=== PATIENT | female | born 1935 | race Caucasian/White ===

== ENCOUNTER 2017-02-04 10:37 | Observation (INO) | payer MEDICARE ==
[~2017-02-04] VITALS: Ht 160 cm; Wt 85.1 kg
[~2017-02-04 10:37] MED LIST: AMLO2.5T PO; ASPI-621 PO; ATOR40TA PO; CEFD300C2 PO; HYDR12.53 PO; HYDR25TA6 PO; LISI-167 PO; METO100T5 PO; METO50TA82 PO; TICA90TA PO
[2017-02-04] MEDS ORDERED: HYDR12.58 PO (10:56)
[2017-02-04] MEDS ORDERED: SODIUM CHLORIDE FLUSH 10ML SYR IVF ONE (11:00)
[2017-02-04 11:27] LABS: HEMOGLOBIN 14.5 g/dL (11.7-16.4)
[2017-02-04 11:37] LABS: BLOOD UREA NITROGEN 16 mg/dL (7-18)
[2017-02-04] MEDS ORDERED: SODIUM CHLORIDE FLUSH 10ML SYR IVF PRN (12:30)
[2017-02-04 14:59] VITALS: BP 154/66
[2017-02-04 15:56] VITALS: BP 128/78
[2017-02-04] MEDS ORDERED: GUAIFENESIN/DM 200-20MG, 10ML UDC PO PRN (16:00)
[2017-02-04] MEDS ORDERED: ONDANSETRON 2MG/ML, 2ML IVP PRN (16:00)
[2017-02-04] MEDS ORDERED: ENALAPRILAT 1.25 MG/ML, 2ML IV PRN (16:00)
[2017-02-04] MEDS ORDERED: DOCUSATE 100 MG CAPSULE PO PRN (16:00)
[2017-02-04] MEDS ORDERED: TRAZODONE 50MG TABLET PO PRN (16:00)
[2017-02-04] MEDS ORDERED: NITROGLYCERIN 0.4 MG BOTTLE (25 TABS) SL PRN (16:00)
[2017-02-04] MEDS ORDERED: ENOXAPARIN 40 MG/0.4 ML SQ SCH (16:00)
[2017-02-04] MEDS ORDERED: ACETAMINOPHEN 325 MG TABLET PO PRN (16:00)
[2017-02-04 17:30] LABS: IS PT STATUS REG ER OR PRE ER? NO
[2017-02-04 19:28] VITALS: BP 146/73
[2017-02-04] MEDS: METOPROLOL TARTRATE 50 MG TABLET PO SCH (20:26)
[2017-02-04] MEDS: TICAGRELOR 90 MG TABLET PO SCH (20:26)
[2017-02-04] MEDS: AMLODIPINE 2.5 MG TABLET PO SCH (20:29)
[2017-02-04] MEDS ORDERED: ATORVASTATIN 40 MG TABLET PO SCH (21:00)
[2017-02-04 23:11] LABS: IS PT STATUS REG ER OR PRE ER? NO
[2017-02-05 01:11] VITALS: BP 101/63
[2017-02-05] MEDS ORDERED: ASPIRIN 81 MG TABLET EC PO SCH ×2 (06:00→10:30)
[2017-02-05] MEDS ORDERED: ASPIRIN 325 MG TABLET EC PO SCH (06:00)
[2017-02-05 07:10] VITALS: BP 115/65
[2017-02-05] MEDS ORDERED: REGADENOSON 0.4 MG/5 ML SYRINGE ONE (08:55)
[2017-02-05] MEDS: AMLODIPINE 2.5 MG TABLET PO SCH (09:00)
[2017-02-05] MEDS ORDERED: HYDROCHLOROTHIAZIDE 12.5 MG CAPSULE PO SCH (09:00)
[2017-02-05 09:14] VITALS: BP 153/81
[2017-02-05] MEDS: METOPROLOL TARTRATE 50 MG TABLET PO SCH (09:15)
[2017-02-05] MEDS: TICAGRELOR 90 MG TABLET PO SCH (11:42)
[2017-02-05 12:55] VITALS: BP 140/79
[2017-02-05] MEDS ORDERED: METOPROLOL TARTRATE 50 MG TABLET PO SCH (21:00)
== END 2017-02-05 18:27 | disposition home or self-care (01) ==
LOC: ED 11:45 → EDIP 12:09 → INTOOBSV 12:09 → 5SO 14:53
PROVIDERS: ADMIT Internal Medicine; ATTEND Internal Medicine
DX: M79.602 Pain in left arm (principal); R07.9 Chest pain, unspecified; I25.10 Atherosclerotic heart disease of native coronary artery without angina pectoris; I11.0 Hypertensive heart disease with heart failure; I50.9 Heart failure, unspecified; E78.00 Pure hypercholesterolemia, unspecified; I25.2 Old myocardial infarction; E78.5 Hyperlipidemia, unspecified; Z86.73 Personal history of transient ischemic attack (TIA), and cerebral infarction without residual deficits; Z87.891 Personal history of nicotine dependence; Z95.5 Presence of coronary angioplasty implant and graft
CPT/HCPCS: 36415; 71010; 78452; 80048; 82040; 83880; 84484; 85025; 85610; 85730; 93005; 93017; 96372; 99285; A9502; C9898; G0378; J1650; J2785

== ENCOUNTER 2017-02-07 08:44 | Emergency (ER) | payer MEDICARE ==
[~2017-02-07] VITALS: Ht 165.1 cm; Wt 80.0 kg
[~2017-02-07 08:44] MED LIST changes: +HYDR12.58 PO
[2017-02-07] MEDS ORDERED: SODIUM CHLORIDE 0.9% 1,000 ML IV ONE (09:48)
[2017-02-07] MEDS ORDERED: FAMOTIDINE 20 MG/2 ML IVP ONE (10:00)
[2017-02-07] MEDS ORDERED: ONDANSETRON 2MG/ML, 2ML IVPush ONE (10:00)
[2017-02-07] MEDS ORDERED: SODIUM CHLORIDE FLUSH 10ML SYR IVF ONE (10:00)
[2017-02-07] MEDS ORDERED: ONDANSETRON 2MG/ML, 2ML ONE (10:30)
[2017-02-07] MEDS ORDERED: FAMOTIDINE 20 MG/2 ML ONE (10:31)
[2017-02-07 10:41] LABS: HEMOGLOBIN 14.1 g/dL (11.7-16.4)
[2017-02-07 10:51] LABS: ASPARTATE AMINO TRANSFERASE 20 U/L (15-37); BLOOD UREA NITROGEN 18 mg/dL (7-18)
[2017-02-07 11:53] VITALS: BP 163/84
[2017-02-07 12:15] LABS: PATH.CAST-FLAG NOT PRESENT; SPERM-FLAG NOT PRESENT; SRC-FLAG NOT PRESENT; XTAL-FLAG NOT PRESENT; YLC-FLAG NOT PRESENT
== END 2017-02-07 13:33 | disposition home or self-care (01) ==
LOC: ED 10:35
DX: R11.10 Vomiting, unspecified (principal); R53.1 Weakness; R53.83 Other fatigue; I10 Essential (primary) hypertension; I25.2 Old myocardial infarction; Z86.73 Personal history of transient ischemic attack (TIA), and cerebral infarction without residual deficits; Z90.710 Acquired absence of both cervix and uterus; Z90.89 Acquired absence of other organs
CPT/HCPCS: 36415; 74020; 80053; 81001; 85025; 87086; 93005; 96361; 96374; 96375; 99285; J2405; J7030; S0028

== ENCOUNTER 2017-06-25 08:22 | Inpatient (IN) | payer MEDICARE, OTHER ==
[~2017-06-25] VITALS: Ht 160 cm; Wt 87.1 kg
[~2017-06-25 08:22] MED LIST changes: -CEFD300C2 PO; +CEFD300C37 PO
[2017-06-25] MEDS ORDERED: ONDANSETRON 2MG/ML, 2ML ONE (08:54)
[2017-06-25] MEDS ORDERED: MORPHINE SULFATE 4 MG/ML, 1ML ONE (08:54)
[2017-06-25 08:55] LABS: HEMOGLOBIN 14.3 g/dL (11.7-16.4); WHITE BLOOD COUNT 8.5 x10^3/uL (3.4-10)
[2017-06-25] MEDS ORDERED: MORPHINE SULFATE 4 MG/ML, 1ML IVPush PRN (09:00)
[2017-06-25] MEDS ORDERED: ONDANSETRON 2MG/ML, 2ML IVPush ONE (09:00)
[2017-06-25] MEDS ORDERED: SODIUM CHLORIDE FLUSH 10ML SYR IVF ONE (09:00)
[2017-06-25 09:07] LABS: ASPARTATE AMINO TRANSFERASE 35 U/L (15-37); BLOOD UREA NITROGEN 13 mg/dL (7-18)
[2017-06-25 09:13] LABS: IS PT STATUS REG ER OR PRE ER? YES
[2017-06-25 10:20] LABS: PATH.CAST-FLAG NOT PRESENT; SPERM-FLAG NOT PRESENT; SRC-FLAG NOT PRESENT; XTAL-FLAG NOT PRESENT; YLC-FLAG NOT PRESENT
[2017-06-25] MEDS ORDERED: ACETAMINOPHEN 325 MG TABLET PO ONE (10:30)
[2017-06-25] MEDS ORDERED: hydrALAzine 20 MG/ML, 1ML IV ONE (11:22)
[2017-06-25] MEDS ORDERED: hydrALAzine 20 MG/ML, 1ML ONE (11:23)
[2017-06-25] MEDS ORDERED: MECLIZINE CHEWABLE 25 MG TAB PO STA (11:43)
[2017-06-25] MEDS ORDERED: POTASSIUM CHLORIDE 20 MEQ TAB.ER.PRT PO ONE (14:30)
[2017-06-25] MEDS ORDERED: DOCUSATE 100 MG CAPSULE PO PRN (15:00)
[2017-06-25] MEDS ORDERED: ACETAMINOPHEN 325 MG TABLET PO PRN (15:00)
[2017-06-25] MEDS ORDERED: ENALAPRILAT 1.25 MG/ML, 2ML IVPush PRN (15:00)
[2017-06-25] MEDS ORDERED: LABETALOL 5MG/ML, 20ML IVPush PRN (15:00)
[2017-06-25] MEDS ORDERED: ONDANSETRON 2MG/ML, 2ML IVPush PRN (15:00)
[2017-06-25] MEDS ORDERED: TEMAZEPAM 15 MG CAPSULE PO PRN (15:00)
[2017-06-25] MEDS: HYDROCHLOROTHIAZIDE 25 MG TABLET PO SCH (18:44)
[2017-06-25] MEDS: VALSARTAN 80 MG TABLET PO SCH (18:44)
[2017-06-25 20:35] VITALS: BP 130/52
[2017-06-25] MEDS: METOPROLOL TARTRATE 50 MG TABLET PO SCH (21:42)
[2017-06-25] MEDS: TICAGRELOR 90 MG TABLET PO SCH (21:42)
[2017-06-25] MEDS: ATORVASTATIN 40 MG TABLET PO SCH (21:42)
[2017-06-26 01:31] VITALS: BP 110/67
[2017-06-26] MEDS: ASPIRIN 81 MG TABLET EC PO SCH (06:11)
[2017-06-26 06:31] LABS: ASPARTATE AMINO TRANSFERASE 31 U/L (15-37); BLOOD UREA NITROGEN 15 mg/dL (7-18)
[2017-06-26 08:24] VITALS: BP 158/75
[2017-06-26] MEDS: HYDROCHLOROTHIAZIDE 25 MG TABLET PO SCH (08:33)
[2017-06-26] MEDS: TICAGRELOR 90 MG TABLET PO SCH ×2 (08:34→20:12)
[2017-06-26] MEDS: VALSARTAN 80 MG TABLET PO SCH (08:34)
[2017-06-26] MEDS: METOPROLOL TARTRATE 50 MG TABLET PO SCH ×2 (08:34→20:12)
[2017-06-26 12:45] VITALS: BP_SYST 104; BP_SYST 114; BP_DIAS 52; BP_DIAS 70
[2017-06-26 19:01] VITALS: BP 131/78
[2017-06-26] MEDS: ATORVASTATIN 40 MG TABLET PO SCH (20:11)
[2017-06-26] MEDS ORDERED: MELATONIN 3 MG TABLET PO PRN (20:30)
[2017-06-27 02:24] VITALS: BP 109/65
[2017-06-27 06:45] VITALS: BP 121/69
[2017-06-27] MEDS: METOPROLOL TARTRATE 50 MG TABLET PO SCH (08:32)
[2017-06-27] MEDS: TICAGRELOR 90 MG TABLET PO SCH (08:32)
[2017-06-27] MEDS: HYDROCHLOROTHIAZIDE 25 MG TABLET PO SCH (08:32)
[2017-06-27] MEDS: ASPIRIN 81 MG TABLET EC PO SCH (08:32)
[2017-06-27] MEDS: VALSARTAN 80 MG TABLET PO SCH (08:33)
[2017-06-27] MEDS ORDERED: VALS80TA3 PO (13:12)
[2017-06-27 13:35] VITALS: BP 110/66
== END 2017-06-27 15:40 | disposition home or self-care (01) | DRG 305 ==
LOC: ED 09:30 → EDIP 10:20 → 4EST 12:35 → DCLOUNGE 06-27 14:45
PROVIDERS: ADMIT Internal Medicine; ATTEND Internal Medicine
DX: I16.0 Hypertensive urgency (principal); E78.5 Hyperlipidemia, unspecified; E87.6 Hypokalemia; I11.0 Hypertensive heart disease with heart failure; I25.10 Atherosclerotic heart disease of native coronary artery without angina pectoris; E23.6 Other disorders of pituitary gland; I50.9 Heart failure, unspecified; I25.2 Old myocardial infarction; Z85.828 Personal history of other malignant neoplasm of skin; Z86.73 Personal history of transient ischemic attack (TIA), and cerebral infarction without residual deficits; Z95.5 Presence of coronary angioplasty implant and graft; Z90.710 Acquired absence of both cervix and uterus; Z90.49 Acquired absence of other specified parts of digestive tract
CPT/HCPCS: 36415; 70450; 70551; 80053; 80061; 81001; 83605; 83735; 84100; 84484; 85025; 87086; 93005; 96374; J0360